=== PATIENT | male | born 1950 | race Hispanic/Latino ===

== ENCOUNTER 2016-10-18 16:11 | Emergency (ER) | payer BC, OTHER ==
[2016-10-18 16:20] VITALS: O2SAT 100
[2016-10-18] MEDS ORDERED: Morphine 4 mg/ml ISec IVP STA (16:31)
[2016-10-18] MEDS ORDERED: Sodium Chloride 0.9% 1,000 ML IV STA (16:31)
--- NOTE | 2016-10-18 16:45 | ED PDOC ---
Arrival/HPI - General Historian: Patient - General Chief Complaint: Abdominal Pain Time Seen by Provider: 10/18/16 16:30 - History of Present Illness Narrative History of Present Illness (Text): 10/18/16 16:42 66-year-old male with a history of diverticulitis presents today with a 3 day history of left-sided flank pain. Patient was given pain medications by his primary care physician and the pain resolved for one day and then returned in the left lower quadrant of the abdomen. Patient states the pain has been intermittent until today when he developed severe left lower quadrant abdominal pain. Patient still complaining of slight flank pain with hematuria and urinary frequency. Patient also states he noticed some dark urine today. No vomiting but states she is severely nauseous. No diarrhea. No constipation. Patient states he's had decreased appetite for the past 3 days. Complaining of subjective fevers and chills at home. No other complaints (Azoia,Mya T) Past Medical History - Provider Review Nursing Documentation Reviewed: Yes - Travel History Have you recently traveled outside [place] w/in the past 3 mons?: No - Tetanus Immunization Tetanus Immunization: Unknown - Cardiac Hx Hypertension: Yes - Pulmonary Hx Respiratory Disorders: No - Neurological Hx Neurological Disorder: No - HEENT Other/Comment: DEVIATED SEPTUM - Renal Hx Renal Disorder: No - Endocrine/Metabolic Hx Endocrine Disorders: No - Hematological/Oncological Hx Blood Disorders: No - Integumentary Hx Dermatological Disorder: No - Musculoskeletal/Rheumatological Hx Musculoskeletal Disorders: No - Gastrointestinal Hx Diverticulitis: Yes - Genitourinary/Gynecological Hx Genitourinary Disorders: No - Psychiatric Hx Psychophysiologic Disorder: No Hx Substance Use: No - Surgical History Hx Tonsillectomy: Yes Other/Comment: BACK - Anesthesia Hx Anesthesia: Yes Family/Social History - Physician Review Nursing Documentation Reviewed: Yes Family/Social History: Unknown Family HX Smoking Status: Never Smoked Hx Alcohol Use: No Hx Substance Use: No Allergies/Home Meds Allergies/Adverse Reactions: Allergies erythromycin base Allergy (Verified 10/18/16 16:13) RASH levofloxacin [From Levaquin] Allergy (Verified 10/18/16 16:13) PAIN shellfish derived Allergy (Verified 10/18/16 16:14) RASH Home Medications: Home Meds Medication Instructions Recorded Confirmed Metoprolol Succinate [Metoprolol 25 mg PO DAILY 10/18/16 10/18/16 Succinate] Oxymetazoline 0.05% [Afrin 0.05%] 1 spray FITZ PRN PRN 10/18/16 10/18/16 traMADol [Ultram] 50 mg PO Q8 PRN 10/18/16 10/18/16 Review of Systems - Review of Systems Constitutional: Fevers Respiratory: absent: SOB, Cough Cardiovascular: absent: Chest Pain, Palpitations Gastrointestinal: Abdominal Pain, Nausea. absent: Constipation, Diarrhea, Vomiting Genitourinary Male: Frequency, Hematuria. absent: Dysuria Musculoskeletal: Back Pain. absent: Arthralgias, Neck Pain Skin: absent: Rash, Pruritis Neurological: absent: Headache, Dizziness Physical Exam Vital Signs Reviewed: Yes Temperature: Afebrile Blood Pressure: Hypertensive Pulse: Regular Respiratory Rate: Normal Appearance: Positive for: Well-Appearing, Non-Toxic, Comfortable Pain Distress: None Mental Status: Positive for: Alert and Oriented X 3 - Systems Exam Head: Present: Atraumatic Mouth: Present: Moist Mucous Membranes Neck: Present: Normal Range of Motion Respiratory/Chest: Present: Clear to Auscultation, Good Air Exchange. No: Respiratory Distress, Accessory Muscle Use Cardiovascular: Present: Regular Rate and Rhythm, Normal S1, S2. No: Murmurs Abdomen: Present: Tenderness (+ llq tenderness), Normal Bowel Sounds, Guarding ( voluntary). No: Distention, Peritoneal Signs, Rebound, McBurney's Point Tender Back: Present: Normal Inspection, Other (+ left flank tenderness). No: CVA Tenderness, Midline Tenderness Upper Extremity: Present: Normal Inspection Lower Extremity: Present: Normal Inspection Neurological: Present: GCS=15, Speech Normal Skin: Present: Warm, Dry, Normal Color Psychiatric: Present: Alert, Oriented x 3 Vital Signs Temp Pulse Resp BP Pulse Ox 10/18/16 19:17 98 F 80 20 132/78 100 10/18/16 16:16 97.6 F 74 17 139/91 H 100 Medical Decision Making ED Course and Treatment: 10/18/16 16:46 Patient is nontoxic well appearing with stable vital signs presenting with left flank and left sided abdominal pain CBC wbc: 15.2 CMP: wnl Amylase wnl Lipase wnl lactic acid; 2.9 pt does not have sirs criteria at present time; CAT scan:FINDINGS: There is limited evaluation of the solid organs without the administration of IV contrast. LOWER THORAX: No visible consolidation, pleural effusion, or pneumothorax. LIVER: Unremarkable unenhanced appearance. GALLBLADDER AND BILE DUCTS: Unremarkable unenhanced appearance. PANCREAS: Unremarkable unenhanced appearance. SPLEEN: Unremarkable unenhanced appearance. ADRENALS: Unremarkable unenhanced appearance. KIDNEYS AND URETERS: 3 mm distal left UVJ calculus with mild proximal hydroureteronephrosis. Punctate nonobstructing 1 mm left mid pole renal calculus. No left-sided hydronephrosis. BLADDER: The urinary bladder appears unremarkable. REPRODUCTIVE: The prostate gland measures approximately 3.9 x 4.0 cm and contains calcifications. APPENDIX: The appendix appears within normal limits of caliber. BOWEL: The stomach is nondistended. Minimal residual oral contrast ; correlate for recent outside imaging. As oral contrast was not administered for this examination, evaluation for bowel pathology is limited. The bowel loops appear within normal limits of caliber without evidence of intestinal obstruction. Scattered diverticula without CT evidence of acute diverticulitis. PERITONEUM: No significant free fluid. No definite free air. LYMPH NODES: No bulky lymphadenopathy identified. VASCULATURE: Scattered atherosclerotic calcifications. No aortic aneurysm. BONES: Multilevel degenerative changes. OTHER FINDINGS: Fat containing right inguinal hernia. IMPRESSION: 3 mm distal left UVJ calculus with mild proximal hydroureteronephrosis. Punctate nonobstructing 1 mm left mid pole renal calculus. Diverticulosis without CT evidence of acute diverticulitis. Additional incidental findings as above. Patient reassessment: pt still with pain after morphine; toradol added. UA: + blood flomax given po pt reassessment; pt feeling better after medications; vitals stable. pt seen by dr. jaramillo; requesting rx for percocet to go home. wants pt to f/ u with dr. arnold. Discussed all results with patient in depth advised taking meds as needed; advised f/u with pmd and urologist. advised return if symptoms worsen,persist or if new symptoms develop. Patient verbalizes understanding of discharge instructions and need for immediate followup. all aspects of this case were discussed the attending of record. Impression: kidney stone Motrin every 6 hours as needed for pain percocet; 1 tablet every 6 hours as needed for moderate to severe pain; may cause drowsiness. Flomax; 1 tablet daily x 4 days. Increase fluids Follow up with primary care physician within the next 2 days Follow up with the urologist within the next 2 days. Return immediately if symptoms worsen persist or if new symptoms develop: High fevers, increasing pain, vomiting, diarrhea or any other concerning symptoms develop (Mya Bui) 10/19/16 11:56 Patient seen and evaluated with PA. Pain is intermittent, colicky, associated with darker urine. CT suggestive of kidney stone, wbc elevated but no UTI noted , no fever, no cva tenderness. Pain almost completely resolved after Toradol. Afebrile, able to urinate, comfortable, no nausea, no chest pain or sob. Case reviewed with PMD in ER, as pain free will d/c with follow-up urology. Instructions to return to ER d/w patient. (Haily De La Torre) - Lab Interpretations Lab Results: 10/18/16 16:45 10/18/16 16:45 Lab Results 10/18/16 19:20: Urine Color Yellow, Urine Appearance Clear, Urine pH 6.0, Ur Specific [place] >= 1.030, Urine Protein Negative, Urine Glucose (UA) Negative, Urine Ketones 15 H, Urine Blood Moderate H, Urine Nitrate Negative, Urine Bilirubin Negative, Urine Urobilinogen 0.2, Ur Leukocyte Esterase Negative, Urine RBC 5 - 10, Urine WBC 0 - 2, Ur Epithelial Cells 0 - 2, Urine Bacteria Trace 10/18/16 16:45: WBC 15.2 H, RBC 5.82, Hgb 17.8, Hct 50.3, MCV 86.4, MCH 30.6, MCHC 35.4, RDW 13.5, Plt Count 191, MPV 11.2 H, Gran % 83.8 H, Lymph % (Auto) 9.8 L, [place] % (Auto) 5.9, Eos % (Auto) 0.3 L, Baso % (Auto) 0.2, Gran # 12.73 H , Lymph # 1.5, [place] # 0.9 H, Eos # 0.1, Baso # 0.03, pO2 37, VBG pH 7.30 L, VBG pCO2 58.0, VBG HCO3 28.5 H, VBG Total CO2 30.3 H, VBG O2 Sat (Calc) 65.4 H, VBG Base Excess 0.8, VBG Potassium 4.1, Glucose 170 H, Lactate 2.9 H, FiO2 21.0, Sodium 137.0, Potassium 4.3, Chloride 101.0, Carbon Dioxide 28, Anion Gap 16, BUN 12, Creatinine 1.1, Est GFR ( Amer) > 60, Est GFR (Non-Af Amer) > 60 , Random Glucose 163 H, Calcium 10.2, Total Bilirubin 1.1, AST 44, ALT 57 H, Alkaline Phosphatase 97, Total Protein 7.9, Albumin 4.5, Globulin 3.4, Albumin/ Globulin Ratio 1.3, Amylase 52, Lipase 72, Venous Blood Potassium 4.1 - RAD Interpretation Radiology Orders: 10/18/16 16:32 CHEST PORTABLE [RAD] Stat 10/18/16 17:05 ABD & PELVIS W/O PO OR IV CONT [CT] Stat - Medication Orders Current Medication Orders: Discontinued Medications Sodium Chloride (Sodium Chloride 0.9%) 1,000 mls @ 999 mls/hr IV .Q1H1M STA Stop: 10/18/16 17:31 Last Admin: 10/18/16 16:56 Dose: 999 MLS/HR eMAR Start Stop Document 10/18/16 16:56 ROOPA (Rec: 10/18/16 16:56 [id number] Intravenous Solution Start Date 10/18/16 Start Time 16:56 Ketorolac Tromethamine (Toradol) 30 mg IVP STAT STA Stop: 10/18/16 17:50 Last Admin: 10/18/16 18:00 Dose: 30 MG IVP Administration Document 10/18/16 18:00 LYNNE (Rec: 10/18/16 18:00 [id number] [id number]) Charges for Administration # of IVP Administrations 1 Morphine Sulfate (Morphine) 4 mg IVP STAT STA Stop: 10/18/16 16:32 Last Admin: 10/18/16 16:55 Dose: 4 MG MAR Pain Assessment Document 10/18/16 16:55 ROOPA (Rec: 10/18/16 16:55 [id number] Pain Reassessment Is this a pain reassessment? No Sleep Is patient sleeping during reassessment? No Presence of Pain Presence of Pain Yes IVP Administration Document 10/18/16 16:55 ROOPA (Rec: 10/18/16 16:55 [facility] [id number][facility] Charges for Administration # of IVP Administrations 1 Ondansetron HCl (Zofran Inj) 4 mg IVP STAT STA Stop: 10/18/16 16:45 Last Admin: 10/18/16 16:56 Dose: 4 MG IVP Administration Document 10/18/16 16:56 ROOPA (Rec: 10/18/16 16:56 EM [id number]) Charges for Administration # of IVP Administrations 1 Tamsulosin HCl (Flomax) 0.4 mg PO STAT STA Stop: 10/18/16 19:51 Last Admin: 10/18/16 20:00 Dose: 0.4 MG Disposition/Present on Arrival - Present on Arrival Any Indicators Present on Arrival: No History of DVT/PE: No History of Uncontrolled Diabetes: No Urinary Catheter: No History of Decub. Ulcer: No History Surgical Site Infection Following: None - Disposition Have Diagnosis and Disposition been Completed?: Yes Disposition Time: 19:52 Patient Plan: Discharge - Disposition Diagnosis: Kidney stone Disposition: HOME/ ROUTINE Condition: GOOD Discharge Instructions (ExitCare): Kidney Stones (ED) Additional Instructions: Motrin every 6 hours as needed for pain percocet; 1 tablet every 6 hours as needed for moderate to severe pain; may cause drowsiness. Flomax; 1 tablet daily x 4 days. Increase fluids Follow up with primary care physician within the next 2 days Follow up with the urologist within the next 2 days. Return immediately if symptoms worsen persist or if new symptoms develop: High fevers, increasing pain, vomiting, diarrhea or any other concerning symptoms develop Prescriptions: Tamsulosin [Flomax] 0.4 mg PO DAILY #4 cap Ibuprofen [Motrin] 600 mg PO Q6H PRN #20 tab PRN Reason: pain/fever reduction oxyCODONE/Acetaminophen [Percocet 5/325 mg Tab] 1 tab PO Q6H PRN #10 tab PRN Reason: moderate to severe pain Referrals: Reagan Jaramillo MD [Primary Care Provider] - Follow up with primary Darius Arnold MD [Staff Provider] - Follow up with primary Forms: WORK NOTE
[2016-10-18 16:51] LABS: ADD MANUAL DIFF? NO
[2016-10-18 16:56] LABS: BASO # 0.03 K/mm3 (0.0-2.0); BASO % 0.2 % (0.0-3.0); EOS # 0.1 (0.0-0.7); EOS % 0.3 % (1.5-5.0); GRAN # 12.73 (1.4-6.5); GRAN % 83.8 % (50.0-68.0); HEMATOCRIT 50.3 % (42.0-52.0); LYMPH # 1.5 (1.2-3.4); LYMPH % 9.8 % (22.0-35.0); MEAN CELL VOLUME 86.4 fL (80.0-105.0); MEAN CORPUSCULAR HEMOGLOBIN 30.6 pg (25.0-35.0); MEAN CORPUSCULAR HGB CONC 35.4 g/dl (31.0-37.0); MEAN PLATELET VOLUME 11.2 fl (7.0-11.0); MONO # 0.9 (0.1-0.6); MONO % 5.9 % (1.0-6.0); PLATELET COUNT 191 10^3/uL (120.0-450.0); RED CELL DISTRIBUTION WIDTH 13.5 % (11.5-14.5); WHITE BLOOD COUNT 15.2 10^3/ul (4.5-11.0)
[2016-10-18 16:57] LABS: VENOUS BLOOD GAS BASE EXCESS 0.8 mmol/L (0.0-2.0)
--- NOTE | 2016-10-18 17:07 | RAD ---
HISTORY: abdominal pain COMPARISON: None available TECHNIQUE: Chest, one view. FINDINGS: LUNGS: No focal consolidation. Please note that chest x-ray has limited sensitivity for the detection of pulmonary masses. PLEURA: No significant pleural effusion identified. No definite pneumothorax . CARDIOVASCULAR: Heart size appears within normal limits. OSSEOUS STRUCTURES: Degenerative changes. VISUALIZED UPPER ABDOMEN: Unremarkable. OTHER FINDINGS: None. IMPRESSION: No focal consolidation, significant pleural effusion, or definite pneumothorax identified.
[2016-10-18 17:34] LABS: ALB/GLOB RATIO 1.3 (1.1-1.8); ALKALINE PHOSPHATASE 97 U/L (38-133); ALT/SGPT 57 U/L (7-56); AMYLASE 52 U/L (35-125); AST/SGOT 44 U/L (15-59); BILIRUBIN,TOTAL 1.1 mg/dL (0.2-1.3); BLOOD UREA NITROGEN 12 mg/dL (7-21); CALCIUM 10.2 mg/dL (8.4-10.5); CARBON DIOXIDE 28 mmol/L (21-33); CHLORIDE 97 mmol/L (95-110); GFR AFRICAN-AMERICAN > 60; GLUCOSE,RANDOM 163 mg/dL (70-110); LIPASE 72 U/L (23-300); POTASSIUM 4.3 mmol/L (3.6-5.0); SODIUM 137 mmol/L (132-148); TOTAL PROTEIN 7.9 g/dL (5.8-8.3)
--- NOTE | 2016-10-18 17:40 | CT ---
PROCEDURE: CT Abdomen and Pelvis without Oral or IV contrast. HISTORY: ABDOMINAL PAIN/left flank COMPARISON: CT abdomen and pelvis with contrast performed 04/25/15 TECHNIQUE: Contiguous axial images of the abdomen and pelvis. No oral or IV contrast administered. Coronal and Sagittal reformats generated and reviewed. Radiation dose: Total exam DLP = 869.72 mGy-cm. FINDINGS: There is limited evaluation of the solid organs without the administration of IV contrast. LOWER THORAX: No visible consolidation, pleural effusion, or pneumothorax. LIVER: Unremarkable unenhanced appearance. GALLBLADDER AND BILE DUCTS: Unremarkable unenhanced appearance. PANCREAS: Unremarkable unenhanced appearance. SPLEEN: Unremarkable unenhanced appearance. ADRENALS: Unremarkable unenhanced appearance. KIDNEYS AND URETERS: 3 mm distal left UVJ calculus with mild proximal hydroureteronephrosis. Punctate nonobstructing 1 mm left mid pole renal calculus. No left-sided hydronephrosis. BLADDER: The urinary bladder appears unremarkable. REPRODUCTIVE: The prostate gland measures approximately 3.9 x 4.0 cm and contains calcifications. APPENDIX: The appendix appears within normal limits of caliber. BOWEL: The stomach is nondistended. Minimal residual oral contrast ; correlate for recent outside imaging. As oral contrast was not administered for this examination, evaluation for bowel pathology is limited. The bowel loops appear within normal limits of caliber without evidence of intestinal obstruction. Scattered diverticula without CT evidence of acute diverticulitis. PERITONEUM: No significant free fluid. No definite free air. LYMPH NODES: No bulky lymphadenopathy identified. VASCULATURE: Scattered atherosclerotic calcifications. No aortic aneurysm. BONES: Multilevel degenerative changes. OTHER FINDINGS: Fat containing right inguinal hernia. IMPRESSION: 3 mm distal left UVJ calculus with mild proximal hydroureteronephrosis. Punctate nonobstructing 1 mm left mid pole renal calculus. Diverticulosis without CT evidence of acute diverticulitis. Additional incidental findings as above.
[2016-10-18 19:18] VITALS: BP 132/78; PULSE 80; RESP 20; TEMP 98
[2016-10-18 19:33] LABS: URINE BILIRUBIN NEGATIVE (NEGATIVE); URINE BLOOD MODERATE (NEGATIVE); URINE GLUCOSE (UA) NEGATIVE (NEGATIVE); URINE KETONE 15 mg/dL (NEGATIVE); URINE LEUKOCYTE ESTERASE NEGATIVE Leu/uL (NEGATIVE); URINE PROTEIN NEGATIVE mg/dL (<30 mg/dL); URINE UROBILINOGEN 0.2 E.U./dL (<1 E.U./dL)
[2016-10-18 19:35] LABS: URINE APPEARANCE CLEAR (CLEAR); URINE COLOR YELLOW (YELLOW)
[2016-10-18 19:43] LABS: URINE BACTERIA TRACE (NEG); URINE EPITHELIAL CELLS 0 - 2 /hpf (0-5); URINE WBC 0 - 2 /hpf (0-6)
--- NOTE | 2016-10-19 18:49 | CARD ---
APPROVED REPORT EKG Measurement Heart [id number] <Conclusion> Normal sinus rhythm Possible Left atrial enlargement Borderline ECG
== END 2016-10-18 20:18 | disposition home or self-care (01) ==
LOC: ED 16:11
DX: N20.0 Calculus of kidney (principal); I10 Essential (primary) hypertension
CPT/HCPCS: 71010; 74176; 80053; 81001; 82150; 82803; 83690; 85025; 87040; 93005; 96374; 96375; 99283; J1885; J2270; J2405; J7040